=== PATIENT | female | born 1950 | race Caucasian/White ===

== ENCOUNTER 2016-11-17 07:12 | Inpatient (IN) | payer BC ==
--- NOTE | 2016-10-28 09:08 | HISTORY & PHYSICAL EXAMINATION ---
DATE OF ADMISSION: 11/17/2016 PROCEDURE: Left knee replacement. HISTORY OF PRESENT ILLNESS: The patient is a pleasant 66-year-old female who presents for preoperative evaluation prior to left knee replacement. She states she has been having pain in this knee for many years now, which has gradually worsened. It has now gotten to the point that it is affecting her daily activities including walking, standing, going up and down steps. She has tried previous oral anti-inflammatories, had previous cortisone injection. She does ambulate with a cane at times. At this point in time, has failed conservative measures and would like to proceed with a left knee replacement. PAST MEDICAL HISTORY: She denies a history of high blood pressure or cholesterol. No history of diabetes or thyroid issues. ALLERGIES: PERCOCET CAUSES GI UPSET. MEDICATIONS: 1. Fish oil. 2. Tramadol as needed for pain. PAST SURGICAL HISTORY: 1. Previous knee arthroscopies x3. 2. Hysterectomy. 3. Ankle surgery. 4. Rectal biopsy. FAMILY HISTORY: Noncontributory. SOCIAL HISTORY: The patient denies a history of smoking or tobacco use, has 1 glass of wine every other night. REVIEW OF SYSTEMS: Otherwise negative. Please see HPI for pertinent positives. PHYSICAL EXAMINATION: GENERAL: Joe 66-year-old female in no acute distress, alert and oriented x3. VITAL SIGNS: She is 5 feet 7 inches, weighs 178 pounds. Her BMI is 27.8. HEENT: Normocephalic, atraumatic. CARDIAC: Regular rate and rhythm. No murmurs or gallops appreciated. Resting pulse 80 beats a minute. LUNGS: Clear to auscultation without rales or wheezes bilaterally. ABDOMEN: Soft, nontender. Bowel sounds present. EXTREMITIES: Left lower extremity is neurovascularly intact. Calves are soft and nontender. DP pulse +2. Demonstrates good quad tone. Straight leg raise without lag. No erythema or warmth. Has mild effusion. Overall has varus alignment. Has positive crepitation with motion, range of motion is 0/3/115. IMAGING: Reviewed of the left knee shows findings consistent with degenerative joint disease including joint space narrowing, subchondral sclerosis, has peripheral osteophytes noted as patellar spurring as well as degenerative changes noted of the patellofemoral joint. IMPRESSION: 1. Left knee degenerative joint disease. PLAN: Further care discussed with patient. At this point in time, has failed conservative measures and would like to proceed with a left knee replacement. Will proceed with a left knee replacement on 11/17/2016, place on aspirin 81 mg p.o. b.i.d. for a month postop, plan on discharge home with home health physical therapy.
[2016-10-28 12:44] VITALS: BMI 28.0
--- NOTE | 2016-10-28 13:18 | PAT Medication Instructions ---
Service Date Oct 28, 2016. Current Home Medication List Fish Oil (Miles-3), 1 CAP PO QAM Glucosamine-Chondroitin (Glucosamine/Chondroitin), 1 CAP PO QAM Multivitamin (Multivitamin), 1 TAB PO QAM Naproxen (Aleve), 220 MG PO Q12 PRN for Pain Polyethylene Glycol 3350 (Miralax), 17 GM PO HS Medication Instructions For Your Scheduled Surgery - Check with surgeon for instructions: Naproxen (Aleve), 220 MG PO Q12 PRN for Pain - Hold the following medications 2 weeks prior to surgery: Fish Oil (Miles-3), 1 CAP PO QAM Glucosamine-Chondroitin (Glucosamine/Chondroitin), 1 CAP PO QAM - Hold the following medications the morning of surgery: Multivitamin (Multivitamin), 1 TAB PO QAM - Take the following medications as scheduled the night before surgery: Polyethylene Glycol 3350 (Miralax), 17 GM PO HS If you have any questions please call us at [phone] or [phone] or [phone]
[2016-10-28 13:22] LABS: CALCIUM 9.8 mg/dl (8.5-10.1); CREATININE 0.7 mg/dl (0.60-1.20); ESTIMATED AVERAGE GLUCOSE 108 mg/dl; HA1C FLAG Normal (Normal); POTASSIUM 3.9 mmol/L (3.5-5.1)
[2016-10-28 13:23] LABS: URINE APPEARANCE CLEAR (CLEAR); URINE BILIRUBIN NEG (NEG); URINE COLOR YELLOW; URINE NITRITE NEG (NEG); URINE PH 7.5 (4.5-7.5); URINE SPECIFIC GRAVITY 1.013 (1.000-1.030); UROBILINOGEN NEG (NEG); ZZUR CULT IF INDIC CLEAN CATCH NO
[2016-10-28 13:25] LABS: PARTIAL THROMBOPLASTIN RATIO 1.2; PROTHROMBIN TIME (PATIENT) 10.2 SECONDS (9.0-12.0)
[2016-10-28 13:30] LABS: BASO % 0.3 %; BASO ABS # 0.02 K/uL (0-0.2); COMPLETE YES; HEMATOCRIT 42.1 % (37-47); IG% 0.4 %; LYMPH % 29.2 %; LYMPH ABS # 1.98 K/uL (1.2-3.4); MEAN CELL VOLUME 88.6 fL (80-100); MEAN CORPUSCULAR HEMOGLOBIN 30.9 pg (25-34); MEAN CORPUSCULAR HGB CONC 34.9 g/dl (32-36); MEAN PLATELET VOLUME 10.3 fL (7.4-10.4); MONO % 6.8 %; NEUT % 62.3 %; PLATELET COUNT 373 K/uL (130-400); RED BLOOD COUNT 4.75 M/uL (4.2-5.4); WHITE BLOOD COUNT 6.78 K/uL (4.8-10.8)
[2016-10-28 13:31] LABS: MANUAL MICROSCOPIC REQUIRED? NO; REVIEW REQ? NO
--- NOTE | 2016-10-28 13:46 | DIAGNOSTIC IMAGING REPORT ---
CHEST 2 VIEWS ROUTINE HISTORY: 66 years-old Female preadmission exam. No acute chest complaints. COMPARISON: None available TECHNIQUE: Frontal and lateral views of the chest FINDINGS: The cardiomediastinal and hilar silhouettes are within normal limits. There is no pneumothorax, pleural effusion or focal airspace consolidation. No overt pulmonary edema. Endplate spurring is seen throughout the spine. Bones appear grossly intact. IMPRESSION: No acute cardiopulmonary process. The above report was generated using voice recognition software. It may contain grammatical, syntax or spelling errors. Electronically signed by: Lon Appiah M.D. 10/28/2016 1:44 PM Dictated Date/Time: 10/28/2016 1:43 PM
[2016-11-17] VITALS (9 sets, daily range): BP systolic 110–154; BP diastolic 65–79; PULSE 64–77; TEMP 36.3–36.7; O2SAT 95–100; Ht 170.2 cm; Wt 82.9 kg
[~2016-11-17] VITALS: Ht 170.2 cm; Wt 82.9 kg
[2016-11-17] MEDS: TRANEXAMIC ACID INJ 1,000 MG in SODIUM CHLORIDE 0.9% 100ML 100 ML IV SCH ×2 (06:30→09:13)
--- NOTE | 2016-11-17 06:59 | History & Physical Bridge Note ---
H&P Re-Evaluation Bridge Note: I have examined the patient, reviewed the History & Physical and in the interval since the performance of the History & Physical I have noted the following changes of clinical significance: No changes noted
[~2016-11-17 07:12] MED LIST: ACETAMINOPHEN 500 MG TAB PO SCH; BUPIVACAINE 0.25% 30 ML VIAL ONE; BUPIVACAINE 0.5 % 5 MG/1 ML PF 10ML VIAL ONE; CEFAZOLIN 2000 MG/60 ML D5W 60 ML IV SCH; CeleBREX 200 MG CAP PO SCH; DEXAMETHASONE 4 MG TAB PO SCH; FAMOTIDINE 20 MG TAB PO SCH; GABAPENTIN 300 MG CAP PO SCH; GLUC250C PO; LACTATED RINGER'S 1000ML 1,000 ML IV SCH; LACTATED RINGER'S 1000ML 500 ML IV ONE; LACTATED RINGER'S 1000ML IV SCH; METOCLOPRAMIDE HCL 10 MG TAB PO SCH; MULT-506 PO; NAPR1TAB9 PO; OMEG10007 PO; POLY335019 PO; ROPIVACAINE 5MG/ML 30 ML 150 MG, BUPIVACAINE/EPINEPHR 0.5% MPF 30 ML, KETOROLAC TROMETH... INFIL SCH
[2016-11-17] MEDS ORDERED: FENTANYL CITRATE INJ 50 MCG/1 ML 2 ML VIAL IV PRN (07:45)
[2016-11-17] MEDS ORDERED: ONDANSETRON INJ 2 MG/ML 2 ML VIAL IV PRN ×2 (07:45→12:00)
[2016-11-17] MEDS ORDERED: ATROPINE SULFATE 0.1 MG/ML 5ML SYR IV PRN (07:45)
[2016-11-17] MEDS ORDERED: EpHEDrine SULFATE INJ 50 MG/ML AMP IV PRN (07:45)
[2016-11-17] MEDS ORDERED: MIDAZOLAM HCL 1 MG/ML 2ML VIAL ONE ×2 (08:04→08:05)
[2016-11-17] MEDS ORDERED: FENTANYL CITRATE INJ 50 MCG/1 ML 2 ML VIAL ONE (08:05)
[2016-11-17] MEDS ORDERED: ORTHO JOINT ANESTHETIC ONE (09:13)
[2016-11-17] MEDS ORDERED: BACITRACIN 50000 UNIT VIAL ONE (09:13)
[2016-11-17] MEDS ORDERED: POVIDONE-IODINE OP SOLN 30 ML BTL ONE (09:13)
[2016-11-17] MEDS ORDERED: LIDOCAINE HCL 2% 2 ML VIAL (20MG/ML) ONE (10:50)
[2016-11-17] MEDS ORDERED: PROPOFOL IV EMULSION 10 MG/ML 20 ML VIAL IV ONE (10:50)
[2016-11-17] MEDS ORDERED: EpHEDrine SULFATE 50MG/5ML SYR ONE (10:51)
--- NOTE | 2016-11-17 11:08 | [facility] Operative Report ---
Operative Report Operative Date Nov 17, 2016. Pre-Operative Diagnosis Left Knee Degenerative Joint Disease Post-Operative Diagnosis Left Knee Degenerative Joint Disease Procedure(s) Performed Left Total Knee Arthroplasty using Castle & Nephew journey 2 patient matched with block size 5 femur 4 tibia 12 Leida 32 oval patella Surgeon Cas Back Roll Lathe Operator Surgeon(s) Jayden Martinez PA-C Estimated Blood Loss 5CC Findings Severe end-stage Tri-Chlor milligrams joint disease left knee large muscle conservative therapy including anti-inflammatories relative rest activity modification injections Specimens A: Left Knee Bone and Tissue Complication(s) None Disposition Recovery Room / PACU Indications Patient presents with severe end-stage tricompartmental degenerative joint disease varus alignment should large muscle conservative therapy presents a for total knee arthroplasty after failing attempts at conservative management including physical therapy anti-inflammatories relative rest activity modification viscus supplementation as well as corticosteroid injections Description of Procedure After proper prepping and draping of the left lower extremity anterior midline incision was made over the region of the extensor extensor mechanism after meticulous hemostasis was obtained and maintained in subcutaneous tissues a medial parapatellar incision was made The patella was subluxed lateralward the medial lateral gutter were cleaned from any hypertrophic synovitis and scar tissue of the distal femoral block was placed and the distal femoral osteotomy cut was made subsequently the chamfers anterior and posterior osteotomy cuts were made utilizing the 4-in-1 block the tibia was subsequently subluxed anteriorward medial and ateral meniscal remnants were excised in their entirety remnants of the anterior and posterior cruciate ligaments were excised in their entirety excellent exposure of the proximal tibia was obtained the tibial osteotomy guide was placed on the proximal tibial osteotomy cut was made once again the knee was irrigated with copious amounts of sterile saline solution the patella was subsequently everted lateralward thickened scar tissue around the patella was removed the patella was subsequently cut utilizing a freehand technique and was drilled prepared for final preparation and placement of patella socially flexion-extension gaps were checked and the equal and symmetric trials were placed to the appropriate femoral and tibial trials with poly-spacer being placed for equal flexion and extension gaps and full range of motion including extension to 0 and flexion to 140 the trial components after having been taken to recovery range of motion was subsequently removed meticulous hemostasis was obtained and maintained subsequently a knee block injection of joint cocktail including ropivacaine 0.5% 150 mg. Bupivacaine 0.5 % epinephrine 1-200,030 mL's toradol 30 mg dexamethasone 4 mg ketamine 10 mg clonidine 100 micrograms normal saline solution 30 mg was infiltrated into the soft tissues of the posterior knee medial lateral gutters and periosteal synovium special attention was paid to protect neurovascular structures at all times subsequently trial components having been removed the knee was irrigated with sterile saline solution. debris was removed the proximal tibia was subsequently prepared and was made ready for the placement of the tibial component tibial component was also cemented and tamped into position the femoral component was subsequently placed and cemented in the position the patellar component was subsequently cemented in position because hemostasis once again obtained and maintained wound having been thoroughly irrigated with debridement and debridement lavage was performed as well as a medial parapatellar incision closed with #1 Vicryl in interrupted fashion subcutaneous was closed with #2 Vicryl skin was closed with skin clips. PA-C was necessary for prepping and drapping as well as wound closure of deep fascia Sub cutaneous tissue and skin and was necessary for the case. A sterile compressive dressing was placed patient was taken to recovery in stable condition of report dictated by Cas I attest to the content of the Intraoperative Record and any orders documented therein. Any exceptions are noted below. I attest to the content of the Intraoperative Record and any orders documented therein. Any exceptions are noted below.
[2016-11-17] MEDS ORDERED: MAGNESIUM HYDROXIDE SUSP 30 ML UDC PO PRN (12:00)
[2016-11-17] MEDS ORDERED: BISACODYL 10 MG SUPP PR PRN (12:00)
[2016-11-17] MEDS ORDERED: ALUMINUM/MAGNESIUM/SIMETH (MAALOX MAX) 30 ML UDC PO PRN (12:00)
[2016-11-17] MEDS ORDERED: SOD PHOSPHATE/SOD BIPHOSPHATE ENEMA 132 ML BTL PR PRN (12:00)
[2016-11-17] MEDS ORDERED: TRAMADOL HCL 50 MG TAB PO PRN (12:00)
[2016-11-17] MEDS ORDERED: MoRPHine SULFATE 2 MG/ML CARP IV PRN (12:00)
--- NOTE | 2016-11-17 12:11 | DIAGNOSTIC IMAGING REPORT ---
LEFT KNEE 2 VIEWS History: Left total knee arthroplasty. Degenerative arthritis. Postop. FINDINGS: The patient is status post a left total knee arthroplasty. The hardware is intact. No fracture or dislocation. Surgical drains are in place. IMPRESSION: Left total knee arthroplasty. No evidence for hardware complication. Electronically signed by: Uday Cazares M.D. 11/17/2016 12:09 PM Dictated Date/Time: 11/17/2016 12:09 PM
--- NOTE | 2016-11-17 12:34 | Anesthesiology Progress Note ---
Anesthesia Post Op Note Date & Time Nov 17, 2016 at 12:34 Vital Signs Pain Intensity: 0 Vital Signs Past 12 Hours Date Time Temp Pulse Resp B/P (MAP) Pulse Ox O2 Delivery O2 Flow Rate FiO2 11/17/16 11:50 36 93 16 133/59 100 Mask 10 11/17/16 07:41 36.7 76 18 154/74 97 Room Air Notes Mental Status: alert / awake / arousable, participated in evaluation Pt Amnestic to Procedure: Yes Nausea / Vomiting: adequately controlled Pain: adequately controlled Airway Patency, RR, SpO2: stable & adequate BP & HR: stable & adequate Hydration State: stable & adequate Neuraxial Anesthesia: was administered, sensory block is resolving Anesthetic Complications: no major complications apparent
[2016-11-17] MEDS ORDERED: MoRPHine SULFATE 10 MG/ML CARP/VIAL IV PRN (13:15)
[2016-11-17] MEDS ORDERED: MoRPHine SULFATE 4 MG/ML 1 ML CARP\\VIAL IV PRN (13:15)
[2016-11-17] MEDS: D5W AND 1/2NSS + 20MEQ KCL 1,000 ML IV SCH ×2 (13:46→23:42)
[2016-11-17] MEDS ORDERED: KETOROLAC TROMETHAMINE 30 MG/ML VIAL IV. PRN (14:00)
[2016-11-17] MEDS: CEFAZOLIN IV 2,000 MG in DEXTROSE 5% 50ML 50 ML IV SCH (18:39)
[2016-11-17] MEDS: HYDROCODONE/ACETAMOPHEN 5/325MG TAB PO PRN (18:41)
[2016-11-17] MEDS: ASPIRIN 81 MG ECTAB PO SCH (21:23)
[2016-11-17] MEDS: DOCUSATE SODIUM 100 MG CAP PO SCH (21:23)
[2016-11-17] MEDS: POLYETHYLENE (MIRALAX) 17 GM PACK PO SCH (21:23)
[2016-11-17] MEDS: TAPENTADOL ER 50 MG TABCR PO SCH (21:24)
[2016-11-17] MEDS: SENNA 8.6 MG TAB PO SCH (21:24)
[2016-11-18] MEDS: CEFAZOLIN IV 2,000 MG in DEXTROSE 5% 50ML 50 ML IV SCH (01:24)
[2016-11-18] MEDS: HYDROCODONE/ACETAMOPHEN 5/325MG TAB PO PRN ×5 (03:20→21:49)
[2016-11-18 03:30] VITALS: BP 107/67; PULSE 65; TEMP 36.5; O2SAT 99
[2016-11-18 06:17] LABS: HEMATOCRIT 32.3 % (37-47); MEAN CELL VOLUME 87.3 fL (80-100); MEAN CORPUSCULAR HEMOGLOBIN 29.7 pg (25-34); MEAN CORPUSCULAR HGB CONC 34.1 g/dl (32-36); MEAN PLATELET VOLUME 10.3 fL (7.4-10.4); PLATELET COUNT 250 K/uL (130-400); WHITE BLOOD COUNT 13.91 K/uL (4.8-10.8)
[2016-11-18 06:39] LABS: PROTHROMBIN TIME (PATIENT) 10.4 SECONDS (9.0-12.0)
[2016-11-18 06:51] VITALS: BP 131/73; PULSE 69; TEMP 36.6; O2SAT 97
[2016-11-18 06:52] LABS: BUN/CREATININE RATIO 17.4 (10-20); CALCIUM 8.7 mg/dl (8.5-10.1); CREATININE 0.62 mg/dl (0.60-1.20); POTASSIUM 4.4 mmol/L (3.5-5.1)
--- NOTE | 2016-11-18 07:58 | Orthopedic Progress Note ---
Orthopedic Progress Note Date of Service Nov 18, 2016. Subjective Post OP Day: 1 Reports: feeling well, pain controlled w PO medications, Denies: complaints Objective calves soft nontender, N/V intact, dressing C/D/I, A&O x3, toes mobile, hemovac drainage (75ml latest shift) Date Time Temp Pulse Resp B/P (MAP) Pulse Ox O2 Delivery O2 Flow Rate FiO2 11/18/16 06:51 36.6 69 18 131/73 (92) 97 Room Air 11/18/16 03:30 36.5 65 16 107/67 (80) 99 Room Air 11/17/16 23:30 Room Air 11/17/16 23:24 36.5 64 16 110/65 (80) 97 Room Air 11/17/16 20:00 36.3 69 18 124/71 (88) 95 Room Air 11/17/16 15:50 36.5 71 18 126/78 (94) 97 Room Air 11/17/16 15:30 99 Room Air 11/17/16 15:15 Nasal Cannula 2.0 11/17/16 14:42 77 149/75 (99) 100 2.5 11/17/16 13:50 76 122/74 (90) 100 2.5 11/17/16 13:20 36.7 72 18 138/79 (98) 100 2.5 11/17/16 12:50 100 Nasal Cannula 2.0 11/17/16 12:50 100 Nasal Cannula 2.0 11/17/16 12:50 36.5 68 16 125/71 (89) 100 Nasal Cannula 2.0 11/17/16 12:41 138/72 11/17/16 12:40 75 20 100 11/17/16 12:40 78 20 11/17/16 12:36 134/70 11/17/16 12:35 69 18 11/17/16 12:35 68 18 98 11/17/16 12:35 36.1 65 20 134/70 100 Nasal Cannula 2 Mask 11/17/16 12:31 129/66 11/17/16 12:30 69 19 11/17/16 12:30 76 19 100 11/17/16 12:26 131/61 11/17/16 12:25 79 16 100 11/17/16 12:25 77 16 11/17/16 12:21 126/78 11/17/16 12:20 89 23 11/17/16 12:20 90 23 11/17/16 12:16 127/57 11/17/16 12:15 62 18 100 11/17/16 12:15 64 18 11/17/16 12:11 107/67 11/17/16 12:10 89 13 11/17/16 12:10 93 13 100 11/17/16 12:06 120/66 11/17/16 12:05 73 16 11/17/16 12:05 69 16 100 11/17/16 12:01 138/66 11/17/16 12:00 94 16 11/17/16 12:00 92 16 100 11/17/16 11:56 135/54 11/17/16 11:55 94 14 11/17/16 11:55 94 14 100 11/17/16 11:51 133/59 11/17/16 11:50 94 16 11/17/16 11:50 94 16 99 11/17/16 11:50 36 93 16 133/59 100 Mask 10 Laboratory Results 24 Hours: Test 11/18/16 05:38 Hematocrit 32.3 % Hemoglobin 11.0 g/dL Prothromb Time International Ratio 1.0 Prothrombin Time 10.4 SECONDS Assessment & Plan Assessment: POD 1 s/p Left TKA Plan: PT/OT Planning for Services Inhouse Planning Pain Management: Celebrex, Toradol, [place], Morphine, other (Nucynta ER) DVT Prophylaxis: TEDs, SCDs, ASA Discharge Planning Discharge Planning: home with home health Pain Management: Celebrex, [place], other (Nucynta ER) DVT Prophylaxis: TEDs, ASA Therapy: Physical Therapy
[2016-11-18] MEDS: DOCUSATE SODIUM 100 MG CAP PO SCH ×2 (08:39→21:02)
[2016-11-18] MEDS: ASPIRIN 81 MG ECTAB PO SCH ×2 (08:40→21:02)
[2016-11-18] MEDS: MULTIVITAMIN TAB PO SCH (08:40)
[2016-11-18] MEDS: PANTOprazole SOD 40 MG TAB PO SCH (08:41)
[2016-11-18] MEDS: TAPENTADOL ER 50 MG TABCR PO SCH ×2 (08:42→21:01)
[2016-11-18] MEDS: D5W AND 1/2NSS + 20MEQ KCL 1,000 ML IV SCH (10:00)
[2016-11-18 11:05] VITALS: BP 124/72; PULSE 60; TEMP 36.4; O2SAT 100
--- NOTE | 2016-11-18 12:00 | Discharge Instructions ---
Discharge Instructions Date of Service Nov 18, 2016. Admission Reason for Admission: Left Knee Osteoarthritis Discharge Discharge Diagnosis / Problem: left total knee replacement Discharge Goals Goal(s): Decrease discomfort, Improve function, Increase independence Activity Recommendations Activity Limitations: as noted below Weightbearing Status: Left weightbearing (as tolerated) . Instructions / Follow-Up Instructions / Follow-Up ACTIVITY RECOMMENDATIONS: SELF CARE INSTRUCTIONS AFTER TOTAL KNEE REPLACEMENT A. You may need to continue a physical therapy program after discharge from the hospital. There are several options available to you. Your doctor will assist you in selecting the best one for you. 1. An out-patient facility 2 to 3 times a week for therapy or home therapy. 2. Continue working on all exercises taught to you in the hospital. Your goals should be to increase bending of your knee to 90 degrees and beyond and to fully straighten your knee. B. You may progress at your own pace from walking with a walker or crutches to a cane; then to no assistive devices. C. Make walking a part of your daily routine. Be up as much as comfortable with rest periods throughout the day. Rest with leg elevation is very important. Use the ice wrap frequently for the first 3-4 weeks. D. There are no restrictions on activities. You may ride in a car, shop, participate in supervisor polishing and all social activities. E. Wear the long elastic stockings (LEXIE hose) 20 hours a day for 2 weeks after surgery. They can be removed several times a day for laundering and for a bath. F. You may shower, no tub baths until cleared by your doctor. SPECIAL CARE INSTRUCTIONS: VERY IMPORTANT TO READ AND REVIEW A. There are a few signs you need to watch for after you are home. Call [facility] [place] if you notice any of the followin. Increased severe knee pain. Some pain is expected especially when you exercise. 2. Increased swelling in your leg or knee; pain or swelling of the calf muscle in either lower leg. 3. Any fluid drainage from the incision. 4. Shortness of breath or chest pain. B. Please call [facility] at if you have any concerns or questions about your operation or recovery. The doctor or his nurse will return your call promptly. C. You must take antibiotics before dental work, bladder, bowel or other surgery. Your doctor will provide you with a permanent care to carry describing this precaution. IMPORTANT: * REMEMBER TO TAKE ASPIRIN, 81 MG, TWICE DAILY FOR 4 WEEKS UNLESS OTHERWISE DIRECTED. THIS IS YOUR BLOOD THINNER. * HIGH RISK PATIENTS MAY BE PRESCRIBED A STRONGER BLOOD THINNER. THIS WILL BE PROVIDED AT DISCHARGE. * CALL IF INCREASED PAIN, REDNESS, DRAINAGE OR FEVER GREATER THAT 101. * WEAR LEXIE HOSE 20 HOURS PER DAY FOR 2 WEEKS. * DERMABOND Prineo- This is a mesh tape dressing that is covered with glue. It should remain in place until the incision is properly healed, usually 10-14 days. This dressing is designed to naturally slough off. You may trim the excess mesh tape as it peels off. Incision may be briefly wet in a shower. Dry immediately by blotting with a clean, dry towel. Do not bath or swim until instructed by your doctor. Do not scratch, rub, or pick at the dressing. Do not apply any topical ointments or lotions until dressing is completely removed and/or instructed by your doctor. There may be a small piece of suture material at one end of your incision. Do not pull or trim this. If it is bothersome or catching on clothing, you may cover it with a band-aid. FOLLOW UP VISIT: If appointment is not already scheduled: Please call [facility] [place] to make a follow-up appointment for 2 weeks after your surgery at . Current Hospital Diet Patient's current hospital diet: Regular Diet Discharge Diet Recommended Diet: Regular Diet Procedures Procedures Performed: Left Total Knee Arthroplasty using Castle & Nephew journey 2 patient matched with block size 5 femur 4 tibia 12 Leida 32 oval patella Pending Studies Studies pending at discharge: no Laboratory Results Hemoglobin A1c Test 10/28/16 12:30 Range/Units Estimated Average Glucose 108 mg/dl Hemoglobin A1c 5.4 4.5-5.6 % Medical Emergencies . Who to Call and When: Medical Emergencies: If at any time you feel your situation is an emergency, please call 911 immediately. . Non-Emergent Contact Non-Emergency issues call your: Primary Care Provider, Surgeon . "Provider Documentation" section prepared by Jayden Martinez. . VTE Core Measure Inpt VTE Proph given/why not?: Other Anticoagulation (ASA 81mg po bid x 1 month ), T.Elvi Stocksegun, SCD's [place] Drug Monitoring Program Search Results: patient reviewed within database, no issues identified
--- NOTE | 2016-11-18 13:02 | Anesthesiology Progress Note ---
Anesthesia Post Op Note Date & Time Nov 18, 2016 at 13:01 Vital Signs Pain Intensity: 3.0 Vital Signs Past 12 Hours Date Time Temp Pulse Resp B/P (MAP) Pulse Ox O2 Delivery O2 Flow Rate FiO2 11/18/16 11:05 36.4 60 18 124/72 (89) 100 Room Air 11/18/16 07:45 Room Air 11/18/16 06:51 36.6 69 18 131/73 (92) 97 Room Air 11/18/16 03:30 36.5 65 16 107/67 (80) 99 Room Air Notes Mental Status: alert / awake / arousable, participated in evaluation Anesthetic Complications: no major complications apparent
[2016-11-18 15:52] VITALS: BP 130/79; PULSE 66; TEMP 36.8; O2SAT 100
[2016-11-18] MEDS: POLYETHYLENE (MIRALAX) 17 GM PACK PO SCH (21:01)
[2016-11-18] MEDS: SENNA 8.6 MG TAB PO SCH (21:02)
[2016-11-18] MEDS: CeleBREX 200 MG CAP PO SCH (21:02)
[2016-11-18 23:06] VITALS: BP 158/74; PULSE 94; TEMP 36.9; O2SAT 100
[2016-11-19] MEDS: HYDROCODONE/ACETAMOPHEN 5/325MG TAB PO PRN (01:54)
[2016-11-19] MEDS ORDERED: TAPENTADOL HCL 50 MG TAB PO PRN (07:15)
--- NOTE | 2016-11-19 07:30 | Orthopedic Progress Note ---
Orthopedic Progress Note Date of Service Nov 19, 2016. Subjective Post OP Day: 2 Reports: feeling well, pain controlled w PO medications, Denies: chest pain, SOB , nausea / vomiting, light headedness, calf pain Additional Notes: episodes of flushing, states it is similar to when she takes percocet, could be related to the [place]. Objective calves soft nontender, N/V intact, capillary refill less than 2 sec., incision C /D/I, A&O x3, toes mobile Date Time Temp Pulse Resp B/P (MAP) Pulse Ox O2 Delivery O2 Flow Rate FiO2 11/18/16 23:50 Room Air 11/18/16 23:06 36.9 94 16 158/74 (102) 100 11/18/16 15:55 Room Air 11/18/16 15:52 36.8 66 17 130/79 (96) 100 Room Air 11/18/16 11:05 36.4 60 18 124/72 (89) 100 Room Air 11/18/16 07:45 Room Air Assessment & Plan Assessment: POD 2 s/p Left TKA Plan: PT/OT Planning for HH Services will d/c norco, add Nucynta for break through pain, may d/c if flushing improved w/ this change. Discharge Planning Discharge Planning: home with home health Pain Management: Celebrex, other (Nucynta ER) DVT Prophylaxis: [place] ASA Therapy: Physical Therapy
[2016-11-19] MEDS ORDERED: CLB200 PO (07:33)
[2016-11-19] MEDS ORDERED: NCY50 PO (07:33)
[2016-11-19] MEDS ORDERED: CLC100 PO (07:33)
[2016-11-19] MEDS ORDERED: ASPEC81 PO (07:33)
[2016-11-19] MEDS ORDERED: ONDA8TAB6 PO (07:33)
[2016-11-19] MEDS ORDERED: NCYSR50 PO (07:33)
[2016-11-19 07:50] VITALS: BP 163/81; PULSE 71; TEMP 36.8; O2SAT 100
--- NOTE | 2016-11-19 08:22 | Discharge Summary ---
Orthopedic Discharge Summary Admission Date/Reason Nov 17, 2016 at 08:00 Left Knee Osteoarthritis. Discharge Date/Disposition Nov 19, 2016 Home with services Diagnosis Principal Diagnosis: left total knee replacement Procedure(s) Performed Left Total Knee Arthroplasty using [employer] 2 patient matched with block size 5 femur 4 tibia 12 Leida 32 oval patella Consultations NONE Medication Reconciliation New Medications: Ondansetron Hcl (Zofran) 8 Mg Tab 8 MG PO Q8 PRN for Nausea, #20 TAB Aspirin (Aspirin EC Low Dose) 81 Mg Ectab 81 MG PO BID for 30 Days, #60 TAB Celecoxib (Celebrex) 200 Mg Cap 200 MG PO BID for 30 Days, #60 CAP Docusate Sodium (Docusate Sodium) 100 Mg Cap 100 MG PO BID for 10 Days, #20 CAP Tapentadol HCl (Nucynta) 50 Mg Tab 50 MG PO Q4H PRN for Pain, #60 TAB Tapentadol HCl (Nucynta ER) 50 Mg Tabcr 50 MG PO Q12, #20 Continued Medications: Fish Oil ([place]-3) 1 Ea Cap 1 CAP PO QAM, CAP Glucosamine-Chondroitin (Glucosamine/Chondroitin) 1 Cap Cap 1 CAP PO QAM Multivitamin (Multivitamin) Tab 1 TAB PO QAM, TAB Polyethylene Glycol 3350 (Miralax) 1 Pow Pow 17 GM PO HS, #255 GM Discontinued Medications: Naproxen (Aleve) 220 Mg Tab 220 MG PO Q12 PRN for Pain, TAB Admission Physical Exam As per Admitting History & Physical. Hospital Course Patient was a same day admission after undergoing a successful left TKA. she tolerated the procedure well. Post-operatively, her activity was progressed and well tolerated. Please refer to daily progress notes and PT notes for complete details. After exam on 11/19/16, patient felt to be stable for discharge home with HHPT. Patient will f/u in the office in 2 weeks for further evaluation including x-rays and incision check, sooner if having any issues or concerns. Below are pertinent labs/studies during their hospital stay: Last Vital Signs Documentation Date Time Temp Pulse Resp B/P (MAP) Pulse Ox O2 Delivery O2 Flow Rate FiO2 11/19/16 07:50 36.8 71 15 163/81 (108) 100 Room Air 11/17/16 15:15 2.0 Last Resulted CBC 11/18/16 05:38 Last Resulted BMP 11/18/16 05:38 Discharge Instructions ACTIVITY RECOMMENDATIONS: SELF CARE INSTRUCTIONS AFTER TOTAL KNEE REPLACEMENT A. You may need to continue a physical therapy program after discharge from the hospital. There are several options available to you. Your doctor will assist you in selecting the best one for you. 1. An out-patient facility 2 to 3 times a week for therapy or home therapy. 2. Continue working on all exercises taught to you in the hospital. Your goals should be to increase bending of your knee to 90 degrees and beyond and to fully straighten your knee. B. You may progress at your own pace from walking with a walker or crutches to a cane; then to no assistive devices. C. Make walking a part of your daily routine. Be up as much as comfortable with rest periods throughout the day. Rest with leg elevation is very important. Use the ice wrap frequently for the first 3-4 weeks. D. There are no restrictions on activities. You may ride in a car, shop, participate in triple air valve tester and all social activities. E. Wear the long elastic stockings (LEXIE hose) 20 hours a day for 2 weeks after surgery. They can be removed several times a day for laundering and for a bath. F. You may shower, no tub baths until cleared by your doctor. SPECIAL CARE INSTRUCTIONS: VERY IMPORTANT TO READ AND REVIEW A. There are a few signs you need to watch for after you are home. Call [facility] if you notice any of the followin. Increased severe knee pain. Some pain is expected especially when you exercise. 2. Increased swelling in your leg or knee; pain or swelling of the calf muscle in either lower leg. 3. Any fluid drainage from the incision. 4. Shortness of breath or chest pain. B. Please call [facility] at if you have any concerns or questions about your operation or recovery. The doctor or his nurse will return your call promptly. C. You must take antibiotics before dental work, bladder, bowel or other surgery. Your doctor will provide you with a permanent care to carry describing this precaution. IMPORTANT: * REMEMBER TO TAKE ASPIRIN, 81 MG, TWICE DAILY FOR 4 WEEKS UNLESS OTHERWISE DIRECTED. THIS IS YOUR BLOOD THINNER. * HIGH RISK PATIENTS MAY BE PRESCRIBED A STRONGER BLOOD THINNER. THIS WILL BE PROVIDED AT DISCHARGE. * CALL IF INCREASED PAIN, REDNESS, DRAINAGE OR FEVER GREATER THAT 101. * WEAR LEXIE HOSE 20 HOURS PER DAY FOR 2 WEEKS. DERMABOND Prineo- This is a mesh tape dressing that is covered with glue. It should remain in place until the incision is properly healed, usually 10-14 days. This dressing is designed to naturally slough off. You may trim the excess mesh tape as it peels off. Incision may be briefly wet in a shower. Dry immediately by blotting with a clean, dry towel. Do not bath or swim until instructed by your doctor. Do not scratch, rub, or pick at the dressing. Do not apply any topical ointments or lotions until dressing is completely removed and/or instructed by your doctor. There may be a small piece of suture material at one end of your incision. Do not pull or trim this. If it is bothersome or catching on clothing, you may cover it with a band-aid. FOLLOW UP VISIT: If appointment is not already scheduled: Please call [facility] to make a follow-up appointment for 2 weeks after your surgery at .
[2016-11-19] MEDS: DOCUSATE SODIUM 100 MG CAP PO SCH (09:06)
[2016-11-19] MEDS: ASPIRIN 81 MG ECTAB PO SCH (09:06)
[2016-11-19] MEDS: TAPENTADOL ER 50 MG TABCR PO SCH (09:06)
[2016-11-19] MEDS: PANTOprazole SOD 40 MG TAB PO SCH (09:06)
[2016-11-19] MEDS: MULTIVITAMIN TAB PO SCH (09:07)
[2016-11-19] MEDS: CeleBREX 200 MG CAP PO SCH (09:07)
[2016-11-19 11:17] VITALS: BP 163/81; PULSE 71; TEMP 36.8; O2SAT 100
== END 2016-11-19 13:00 | disposition home health service (06) | DRG 470 ==
LOC: C.ACU 07:12 → C.3E 08:00 → ENRESERV 12:26
PROVIDERS: ADMIT Orthopaedic Surgery; ATTEND Orthopaedic Surgery
PROC: 0SRD0J9 Replacement of Left Knee Joint with Synthetic Substitute, Cemented, Open Approach (ICD-10-PCS; principal; 2016-11-17 09:45)
DX: M17.12 Unilateral primary osteoarthritis, left knee (principal); M21.162 Varus deformity, not elsewhere classified, left knee; R23.2 Flushing; T40.2X5A Adverse effect of other opioids, initial encounter; Y92.230 Patient room in hospital as the place of occurrence of the external cause; Z79.1 Long term (current) use of non-steroidal anti-inflammatories (NSAID); Z79.891 Long term (current) use of opiate analgesic; Z79.899 Other long term (current) drug therapy